=== PATIENT | female | born 1990 | race Native Hawaiian/Other Pacific Islander ===

== ENCOUNTER → 2022-04-22 | Outpatient (CLI) | payer OTHER ==
[2022-04-22 10:30] LABS: PLATELET COUNT 266 K/uL (152-353)
[2022-04-22 10:59] LABS: POTASSIUM 4.5 mmol/L (3.6-5.2)
== END ==
LOC: CT 09:00
PROVIDERS: ATTEND Internal Medicine
DX: B19.20 Unspecified viral hepatitis C without hepatic coma (principal)
CPT/HCPCS: 36415; 80053; 80061; 80074; 82105; 84443; 85027; 85610; 86706; 86803; 87517; 87522; 87535; 87902; G0432

== ENCOUNTER 2022-08-02 20:59 | Emergency (ER) | payer OTHER ==
[~2022-08-02] VITALS: Ht 165.1 cm; Wt 64.4 kg
[2022-08-02 21:05] VITALS: TEMP 98.2
[2022-08-02 21:44] LABS: PLATELET COUNT 250 K/uL (152-353)
[2022-08-02 21:47] LABS: POTASSIUM 3.6 mmol/L (3.6-5.2); SODIUM 138 mmol/L (136-145)
[2022-08-02 21:51] LABS: PARTIAL THROMBOPLASTIN TIME 25.1 SECONDS (24.5-33.6)
[2022-08-03 02:30] VITALS: BP 88/55
== END 2022-08-03 02:30 | disposition home or self-care (01) ==
LOC: ED 20:59
PROVIDERS: Family Medicine
DX: R07.89 Other chest pain (principal); Z20.822 Contact with and (suspected) exposure to COVID-19
CPT/HCPCS: 36415; 80053; 81025; 82550; 84484; 85027; 85379; 85610; 85730; 87502; 87635; 87651; 93005; 96360; 96361; 96374; 96375; 99284; J1885; U0003

== ENCOUNTER 2022-09-02 19:58 | Emergency (ER) | payer OTHER ==
[~2022-09-02] VITALS: Ht 165.1 cm; Wt 62.6 kg
[2022-09-02 21:28] LABS: PLATELET COUNT 269 K/uL (152-353)
[2022-09-02 21:37] LABS: POTASSIUM 3.2 mmol/L (3.6-5.2); SODIUM 136 mmol/L (136-145)
[2022-09-02 21:52] LABS: PARTIAL THROMBOPLASTIN TIME 26.7 SECONDS (24.5-33.6)
[2022-09-03 01:30] VITALS: BP 106/68; TEMP 97.9
== END 2022-09-03 01:30 | disposition home or self-care (01) ==
LOC: ED 19:58
PROVIDERS: Emergency Medicine
DX: R10.13 Epigastric pain (principal); K21.9 Gastro-esophageal reflux disease without esophagitis
CPT/HCPCS: 80053; 81002; 81025; 83690; 84484; 85027; 85379; 85610; 85730; 93005; 96372; 99283; J1885; J3490

== ENCOUNTER 2023-01-06 11:56 | Outpatient (CLI) | payer OTHER | END 2023-01-06 19:11 | disposition home or self-care (01) | LOC: MAMMO 11:56 | PROVIDERS: ATTEND Nurse Practitioner Family | DX: Z80.3 Family history of malignant neoplasm of breast (principal) ==

== ENCOUNTER 2023-01-29 11:55 | Outpatient (CLI) | payer OTHER | END 2023-01-29 19:23 | disposition home or self-care (01) | LOC: MAMMO 11:55 | PROVIDERS: ATTEND Nurse Practitioner Family | DX: R92.8 Other abnormal and inconclusive findings on diagnostic imaging of breast (principal) ==